=== PATIENT | male | born 1975 | race Caucasian/White ===

== ENCOUNTER 2019-03-28 10:20 | Inpatient (IN) | payer OTHER ==
[2019-03-28] MEDS ORDERED: ACETAMINOPHEN 1000 MG/100 ML VIAL (NON FORMULARY) IVPB ONE (11:49)
[2019-03-28] MEDS ORDERED: SODIUM CHLORIDE 1,000 ML IV STA (11:49)
[2019-03-28] MEDS ORDERED: CLINDAMYCIN 600MG PREMIX IVPB 600 MG/50 ML BAG IVPB ONE (11:49)
[2019-03-28] MEDS ORDERED: DIPHTH,PERTUSS(ACELL),TET 0.5 ML DISP.SYRIN IM ONE ×2 (11:53→12:31)
--- NOTE | 2019-03-28 11:54 | PDOC ---
History of Present Illness - General Chief Complaint: Injury Stated Complaint: FINGER INJURY/SWOLLEN Time Seen by Provider: 03/28/19 11:11 - History of Present Illness Initial Comments: 03/28/19 11:49 43 yo M with no sig pmh who p/w right fifth phalanx injury with warmth, and swelling. Patient reports slamming his right pinky onto wooden door, with injury to nailbed of pinky (03-23-18). Did not go to ED or seek medical attention at time of injury. States that over the last three days his pinky has progressively become more swollen, and started pulsating. Also states that he developed warmth, and redness of pinky, with spreading of warmth and redness up arm. Patient states that he has taken x 5 500 mg Amoxicillin tabs over the past two days, with no improvement in sx. Denies other complaints. Does not recall last tetanus. Patient denies DEMPSEY, vision change, palpitations, cough, wheezing, orthopena, PND , leg swelling/pain, N/V, F,C, CP, SOB, urinary complaints, hematuria, BPR, abdominal pain, diarrhea, constipation, lightheadedness, weakness, sensory changes. PMHx: as noted above ROS: as noted SHx: Denies Etoh, IVDA, tobacco use Allergies: NKDA Past History - Past Medical History Allergies/Adverse Reactions: Allergies Allergy/AdvReac Type Severity Reaction Status Date / Time No Known Allergies Allergy Verified 03/28/19 10:39 - Psycho Social/Smoking Cessation Hx Smoking History: Never smoked Information on smoking cessation initiated: No Hx Alcohol Use: No Drug/Substance Use Hx: No Review of Systems - Review of Systems Comments:: 03/28/19 11:57 GENERAL/CONSTITUTIONAL: No fever or chills. No weakness. HEAD, EYES, EARS, NOSE AND THROAT: No change in vision. No ear pain or discharge. No sore throat. CARDIOVASCULAR: No chest pain or shortness of breath RESPIRATORY: No cough, wheezing, or hemoptysis. GASTROINTESTINAL: No nausea, vomiting, diarrhea or constipation. GENITOURINARY: No dysuria, frequency, or change in urination. MUSCULOSKELETAL: No joint or muscle swelling or pain. No neck or back pain. SKIN: + Right 5th phalanx swelling, and redness. No rash NEUROLOGIC: No headache, vertigo, loss of consciousness, or change in strength/ sensation. ENDOCRINE: No increased thirst. No abnormal weight change HEMATOLOGIC/LYMPHATIC: No anemia, easy bleeding, or history of blood clots. ALLERGIC/IMMUNOLOGIC: No hives or skin allergy. *Physical Exam - Vital Signs Last Vital Signs Temp Pulse Resp BP Pulse Ox 97.8 F 95 H 16 135/79 98 03/28/19 10:39 03/28/19 10:39 03/28/19 10:39 03/28/19 10:39 03/28/19 10:39 - Physical Exam 03/28/19 11:57 GENERAL: Awake, alert, and fully oriented, in no acute distress HEAD: No signs of trauma, normocephalic, atraumatic EYES: PERRLA, EOMI, sclera anicteric, conjunctiva clear ENT: Hearing grossly normal, nares patent, oropharynx clear without exudates. Moist mucosa NECK: Normal ROM, supple, no lymphadenopathy, JVD, or masses LUNGS: No distress, speaks full sentences, clear to auscultation bilaterally HEART: Regular rate and rhythm, normal S1 and S2, no murmurs, rubs or gallops, peripheral pulses normal and equal bilaterally. ABDOMEN: Soft, nontender, normoactive bowel sounds. No guarding, no rebound. No masses EXTREMITIES : Normal inspection, Normal range of motion, no edema. No clubbing or cyanosis NEUROLOGICAL: Cranial nerves II through XII grossly intact. Normal speech, normal gait, no focal sensorimotor deficits SKIN: + Circumferential erythema, edema, ttp, and warmth at 5th upper phalanx diffusely. 5/5 strength, and sensation intact. Nailbed intact. Absent foreign body. + erythema, warmth, and ttp, on volar-medial aspect of forearm extending towards elbow. Warm, Dry, normal turgor. 2 + peripheral pulses throughout. ED Treatment Course - LABORATORY CBC & Chemistry Diagram: 03/28/19 11:50 03/28/19 11:50 - RADIOLOGY Radiology Studies Ordered: Category Date Time Status CHEST PA & LAT [RAD] Stat Radiology 03/28/19 11:47 Ordered FOREARM- RIGHT [RAD] Stat Radiology 03/28/19 11:48 Ordered HAND- RIGHT [RAD] Stat Radiology 03/28/19 11:47 Ordered Medical Decision Making - Medical Decision Making 03/28/19 11:54 43 yo M with no sig pmh who p/w right fifth phalanx injury with warmth, and swelling. HR 95, vitals otherwise wnl, AF, A&Ox3. Physical exam notable for + Circumferential erythema, edema, ttp, and warmth at 5th upper phalanx diffusely. 5/5 strength, and sensation intact. Nailbed intact. Absent foreign body. + erythema, warmth, and ttp, on volar-medial aspect of forearm extending towards elbow with streaking. Denies h/o IVDA, immunocompromised status. Denies systemic complaints. Denies N/V, F,C, CP, SOB, urinary complaints, hematuria, BPR, abdominal pain, diarrhea, lightheadedness, weakness, sensory changes. Patient with spreading cellulitis, and streaking of RUE. Possible lymphangitic spread on high risk site of body. Rapid progressing cellultiis, with failed antibiotic tx. Plan to admit IV antibiotics. Ed Course: 03/28/19 12:03 Vancomycin 1500 mg 03/28/19 13:32 Laboratory Tests 03/28/19 03/28/19 11:50 11:50 WBC 7.2 Hgb 15.9 Hct 48.1 Plt Count 338 Sodium 136 Potassium 4.3 BUN 7.2 Creatinine 0.7 Total Bilirubin 0.4 AST 81 H ALT 144 H 03/28/19 14:05 One inch wooden foreign body removed from affected fingernail. Nailbed intact. 03/28/19 14:06 R HAND RAD: swelling of right fifth digit. otherwise unremarkable 03/28/19 14:[address] Nikki Pabon/Dr. Crain. Will admit to medicine. 03/28/19 15:[address] Jaylan Joseph/hand surgery Discharge - Discharge Information Problems reviewed: Yes Clinical Impression/Diagnosis: Cellulitis of finger, right Condition: Stable - Admission Yes - Follow up/Referral - Patient Discharge Instructions - Post Discharge Activity
[2019-03-28] MEDS ORDERED: VANCOMYCIN HCL 1,500 MG in DEXTROSE 5%-WATER - 500 ML IVPB ONE (12:10)
[2019-03-28] MEDS ORDERED: ACETAMINOPHEN INJECTION 100 ML IVPB ONE (12:14)
[2019-03-28] MEDS ORDERED: VANCOMYCIN 1 GRAM (PRE-DOCKED) 2,000 MG/500 ML BAG IVPB ONE (12:15)
[2019-03-28 12:49] LABS: BASO % 0.2 % (0-2.0); EOS % 0.5 % (0-4.5); HEMATOCRIT 48.1 % (35.4-49); HEMOGLOBIN 15.9 GM/dL (11.7-16.9); LYMPH % 29.5 % (8-40); MCH 28.2 pg (25.7-33.7); MEAN CELL VOLUME 85.3 fl (80-96); MEAN PLT VOLUME 8.7 fl (7.5-11.1); MONO % 9.8 % (3.8-10.2); PLATELET COUNT 338 K/MM3 (134-434); RBC 5.64 M/mm3 (4.00-5.60); RDW 12.9 % (11.9-15.9); WHITE BLOOD COUNT 7.2 K/mm3 (4.0-10.0)
[2019-03-28 13:10] LABS: INR 1.07 (0.83-1.09); PROTHROMBIN TIME (PATIENT) 12.6 SEC (9.7-13.0)
[2019-03-28 13:12] LABS: ACTIVATED PTT 34.6 SECONDS (25.2-36.5)
[2019-03-28 13:15] LABS: BILIRUBIN,TOTAL 0.4 mg/dL (0.2-1); BLOOD UREA NITROGEN 7.2 mg/dL (7-18); CALCIUM 9.5 mg/dL (8.5-10.1); CREATININE 0.7 mg/dL (0.55-1.3); POTASSIUM 4.3 mmol/L (3.5-5.1); TOT PROT 8.1 g/dl (6.4-8.2)
--- NOTE | 2019-03-28 13:48 | PDOC ---
Attending Attestation - Resident Resident Name: Zay Curranson - ED Attending Attestation I have performed the following: I have examined & evaluated the patient, The case was reviewed & discussed with the resident, I agree w/resident's findings & plan - HPI HPI: 03/28/19 13:44 Healthy 43-year-old male with no significant past medical history presents with progressive right fifth digit redness and swelling now extending up to his proximal arm. Patient initially sustained injury while cleaning a wooden door, scratched his distal right fifth digit on the door and began having progressive swelling over the next 3 days, no sensory or motor deficit, had chills on day 3 , otherwise no measured fevers. Over the last 48 hours the redness has extended significantly up his arm, presents for evaluation. Does not recall last tetanus. - Physicial Exam PE: 03/28/19 13:48 Afebrile, vital signs stable Well-appearing seated comfortably in stretcher speaking full sentences Exam is normal except for right hand: There is circumferential swelling and erythema of the right fifth digit with small amount of pus extruding from the nailbed, no other fluctuance or abscess, full flexion and extension with full strength at the MCP/PIP/DIP, there is tracking cellulitis on the ulnar aspect of the hand radiating proximally and medially to near the axilla. 2+ distal pulses without circumferential swelling of the arm. Questionable foreign body versus scab on the right fifth digit nailbed, no tenderness to palpation. - Medical Decision Making 03/28/19 13:50 43-year-old healthy male presents with tracking right hand/upper extremity cellulitis from initial right fifth digit laceration, possibly retained foreign body, evidence of pus on the nailbed. Hemodynamically stable here and neurovascularly intact without evidence of joint compromise, not septic. Check labs, cultures update tetanus Will need IV antibiotics and close monitoring for high risk area of infection Finger block with elevation of the nailbed to rule out foreign body and drained pus We will need admission, consider hand consultation 03/28/19 14:04 After R 5th digit block, nail elevated from nailbed and approximately 2.5cm wooden splinter removed from nailbed. +serosanguinous, slightly purulent fluid extracted. Tolerated well, remained nvi. Heart Score/ECG Review #1 ECG reviewed & interpreted by me at: 14:06 General ECG Interpretation: Sinus Rhythm, Normal Rate (74), Normal Intervals ( qtc 401, LVH), No acute ischemic changes
[2019-03-28] MEDS ORDERED: TETANUS AND DIPHTHERIA TOXOID 0.5 ML DISP.SYRIN IM ONE (19:44)
[2019-03-28] MEDS ORDERED: LIDOCAINE HCL 2% (20ML MULTI-DOSE VIAL) ONE (19:56)
--- NOTE | 2019-03-28 20:02 | HP ---
Admitting History and Physical - Primary Care Physician PCP: Dee Dee Perez - Admission Chief Complaint: finger pain and infection History of Present Illness: was cleaning wood cabinet, hit the edge with his hand 5 days ago developed swelling pain and tenderness with scant pus discharge over the weekend 2 days ago noted his arm becoming more red and swollen came to see dr. perez was sent to er 2.5 cm wood splinter was removed from under the nailbed in the er received tdap History Source: Patient Limitations to Obtaining History: No Limitations - Past Medical History Cardiovascular: Yes: Hyperlipdemia (on diet) - Smoking History Smoking history: Never smoked - Alcohol/Substance Use Hx Alcohol Use: No History of Substance Use: reports: None Home Medications - Allergies Allergies/Adverse Reactions: Allergies Allergy/AdvReac Type Severity Reaction Status Date / Time No Known Allergies Allergy Verified 03/28/19 10:39 Family Medical History Family History: Unremarkable Review of Systems - Review of Systems Constitutional: reports: No Symptoms HENT: reports: No Symptoms Neck: reports: No Symptoms Cardiovascular: reports: No Symptoms Respiratory: reports: No Symptoms Gastrointestinal: reports: No Symptoms Genitourinary: reports: No Symptoms Musculoskeletal: reports: No Symptoms Integumentary: reports: No Symptoms Neurological: reports: No Symptoms Physical Examination Vital Signs: Vital Signs Temperature 97.8 F 03/28/19 10:39 Pulse Rate 80 03/28/19 19:01 Respiratory Rate 20 03/28/19 19:01 Blood Pressure 140/82 03/28/19 19:01 O2 Sat by Pulse Oximetry (%) 99 03/28/19 19:01 Constitutional: Yes: Well Nourished, No Distress Eyes: Yes: Conjunctiva Clear, EOM Intact HENT: Yes: Normocephalic Neck: Yes: Trachea Midline Cardiovascular: Yes: Regular Rate and Rhythm Respiratory: Yes: CTA Bilaterally Gastrointestinal: Yes: Normal Bowel Sounds, Soft Musculoskeletal: Yes: WNL Extremities: Yes: WNL Edema: No Peripheral Pulses WNL: Yes Wound/Incision: Yes: Other (right 5th finger red tender swollen with decreased rom erythema, warmth, tenderness tracking up over inner forearm to mid arm) Labs: CBC, BMP 03/28/19 11:50 03/28/19 11:50 Imaging - Results X-ray: Report Reviewed (no foreign body noted in xray) Problem List - Problems (1) Foreign body (FB) in soft tissue Code(s): M79.5 - RESIDUAL FOREIGN BODY IN SOFT TISSUE (2) Cellulitis of finger, right Code(s): L03.011 - CELLULITIS OF RIGHT FINGER Assessment/Plan broad spectrum abx coverage surgical evaluation for i+d if needed pain control
--- NOTE | 2019-03-28 20:22 | PN ---
Progress Note (short form) - Note Progress Note: I and D of right small finger. Culture pending. Continue TID soaks with saline, and strict elevation with sling, bacitracna and xeroform to the wound. ABX per ID.
[2019-03-28] MEDS ORDERED: DEXTROSE 5%-WATER - 50 ML IVPB ONE (21:26)
[2019-03-28] MEDS ORDERED: PIPERACILLIN/TAZOBACTAM 3.375 GM VIAL IVPB ONE (21:26)
[2019-03-28] MEDS: PIPERACILLIN/TAZOB 3.375 GM 3.375 GM in DEXTROSE 5%-WATER - 50 ML IVPB SCH (21:36)
[2019-03-28] MEDS: IBUPROFEN 600 MG TABLET (FP) PO PRN (21:36)
[2019-03-29] MEDS ORDERED: PIPERACILLIN/TAZOBACTAM 3.375 GM VIAL IVPB ONE ×3 (00:49→18:31)
[2019-03-29] MEDS ORDERED: DEXTROSE 5%-WATER - 50 ML IVPB ONE ×3 (00:49→18:31)
[2019-03-29] MEDS ORDERED: VANCOMYCIN HCL 1,500 MG in DEXTROSE 5%-WATER - 500 ML IVPB SCH (01:00)
[2019-03-29] MEDS: PIPERACILLIN/TAZOB 3.375 GM 3.375 GM in DEXTROSE 5%-WATER - 50 ML IVPB SCH ×4 (02:15→18:57)
[2019-03-29 05:29] VITALS: BMI 26.6
[2019-03-29] MEDS: IBUPROFEN 600 MG TABLET (FP) PO PRN (08:24)
[2019-03-29 08:53] LABS: BASO % 0.2 % (0-2.0); EOS % 2.1 % (0-4.5); HEMATOCRIT 44.1 % (35.4-49); HEMOGLOBIN 14.9 GM/dL (11.7-16.9); LYMPH % 36.1 % (8-40); MCH 28.4 pg (25.7-33.7); MCHC 33.8 g/dl (32.0-35.9); MEAN PLT VOLUME 8.3 fl (7.5-11.1); MONO % 16.7 % (3.8-10.2); NEUT % 44.9 % (42.8-82.8); PLATELET COUNT 299 K/MM3 (134-434); RBC 5.24 M/mm3 (4.00-5.60); RDW 12.7 % (11.9-15.9); WHITE BLOOD COUNT 5.9 K/mm3 (4.0-10.0)
[2019-03-29 09:12] LABS: ALBUMIN 3.4 g/dl (3.4-5.0); BILIRUBIN,TOTAL 0.5 mg/dL (0.2-1); BLOOD UREA NITROGEN 6.6 mg/dL (7-18); CALCIUM 8.4 mg/dL (8.5-10.1); CREATININE 0.8 mg/dL (0.55-1.3); POTASSIUM 4.3 mmol/L (3.5-5.1); TOT PROT 7.1 g/dl (6.4-8.2)
--- NOTE | 2019-03-29 10:13 | PN ---
Progress Note (short form) - Note Progress Note: ID CONSULT DICTATED S/P REMOVAL OF WOODEN SPLINTER FROM FINGER IN ed S/P INCISION AND DRAINAGE OF FINGER ABSCESS LAST NIGH Cellulitis-resolving lymphangitis- resolving continue vancomycin and zosyn f/u cultures improved d/w PMD last night Problem List - Problems (1) Foreign body (FB) in soft tissue Code(s): M79.5 - RESIDUAL FOREIGN BODY IN SOFT TISSUE (2) Abscess Code(s): L02.91 - CUTANEOUS ABSCESS, UNSPECIFIED (3) Cellulitis of finger, right Code(s): L03.011 - CELLULITIS OF RIGHT FINGER (4) Lymphangitis Code(s): I89.1 - LYMPHANGITIS
[2019-03-29] MEDS: BACITRACIN 15 GM TUBE TOPICAL OINTMENT TP SCH ×2 (10:21→21:56)
[2019-03-29] MEDS: VANCOMYCIN HCL 1,500 MG in DEXTROSE 5%-WATER - 250 ML IVPB SCH (10:30)
--- NOTE | 2019-03-29 11:22 | EKG ---
Test Reason : Blood Pressure : / mmHG Vent. Rate : 074 BPM Atrial Rate : 074 BPM P-R Int : 180 ms QRS Dur : 086 ms QT Int : 362 ms P-R-T Axes : 036 -10 -01 degrees QTc Int : 401 ms NORMAL SINUS RHYTHM MINIMAL VOLTAGE CRITERIA FOR LVH, MAY BE NORMAL VARIANT BORDERLINE ECG NO PREVIOUS ECGS AVAILABLE Confirmed by Garcia Morgan MD ([id number]) on 03/29/2019 11:22:13 AM Referred By: Confirmed By:Garcia Morgan MD
--- NOTE | 2019-03-29 12:02 | PN ---
Progress Note (short form) - Note Progress Note: CBC, BMP 03/29/19 07:52 03/29/19 07:52 LFT slightly elevated Vital Signs Period Temp Pulse Resp BP Sys/Pollock Pulse Ox Last 24 Hr 97.4 F-98.1 F 60-80 18-20 124-140/72-82 99-99 s1s2 rrr lungs cta right hand dressed forearm cellulitis much better this am 43 yo man foreign body injury, finger abscess and cellulitis s/p I+D 1..20 cont vancop zosyn looking better consults appreciated Problem List - Problems (1) Foreign body (FB) in soft tissue Code(s): M79.5 - RESIDUAL FOREIGN BODY IN SOFT TISSUE (2) Cellulitis of finger, right Code(s): L03.011 - CELLULITIS OF RIGHT FINGER
--- NOTE | 2019-03-29 14:21 | CONS ---
INFECTIOUS DISEASE CONSULTATION DATE OF CONSULTATION: DATE OF DICTATION: 03/29/2019 HISTORY OF PRESENT ILLNESS: This is a 43-year-old man who comes to the emergency room on March 28 with complaints of swelling and pain from his right small finger. He apparently was cleaning cabinets and the right 5th finger had a splinter that apparently he was not aware of. He developed progressive erythema and swelling of the arm. He did not go to the ER. Over the last 3 days, the pinkie had become more swollen. He felt it was spreading to his arm, his forearm, and he had some amoxicillin at home that he took with no improvement. He went to see Dr. Medina who sent him to the ER. In the ER, he had a 1-inch wooden foreign body removed from the fingernail. He got clindamycin and vancomycin in the ER and he was admitted. Yesterday evening, he was seen by Plastic Surgery, and he had an incision and drainage of the right small finger, and cultures were sent. I am asked to see him for antibiotic recommendations. I spoke with Dr. Antonio, last night. Patient reports his hand is better, this morning. PAST MEDICAL HISTORY: Notable for hyperlipidemia and that he has never had any surgery. MEDICATIONS: He does not take any medicines. ALLERGIES: No known drug allergies. SOCIAL HISTORY: There is no history of alcohol or substance use. He is originally from the [place]. He lives at home with his family. No sick contacts. No recent travel. He has been here for 5 years. REVIEW OF SYSTEMS: He states he felt feverish at home, but did not take his temperature. Otherwise, he reports improvement in his arm. FAMILY HISTORY: Unremarkable. PHYSICAL EXAMINATION: General: Pleasant man, awake and alert. Vital Signs: Temperature is 97.4. He has had no fever since admission. Pulse of 60, blood pressure 130/77, respiratory rate is 18. HEENT: He is normocephalic. His eyes are anicteric. Neck: Supple. Lungs: Clear to auscultation. Heart: Regular rate and rhythm. Abdomen: Soft. Nontender. Extremities: His right 5th finger has some erythema. There is no drainage noted. There is a marked area on his right forearm, extending to his right inner upper arm, which is warm, but there is minimal erythema. He showed me a picture from last night and it is markedly improved. LABORATORIES: Notable for a white count of 5.9, hemoglobin 14.9, platelets are 299. BUN and creatinine are 6 and 0.8 with an AST of 60 and an ALT of 130. Cultures are pending. In summary, this is a 43-year-old man, admitted from home, with a foreign body in his finger that was removed. He has evidence of cellulitis and he had his abscess drained of the finger. The cellulitis and lymphangitis appear to be resolving. Would continue with Zosyn and vancomycin, at this time. He received tetanus booster in ER. Would follow up his cultures. Overall, he is clinically improved. ALEJANDRO SULLIVAN M.D. [id number]
[2019-03-29] MEDS ORDERED: PT OWN MED DRAWER 7, Y5N ONE (14:53)
[2019-03-29] MEDS: VANCOMYCIN HCL 1,250 MG in DEXTROSE 5%-WATER - 250 ML IVPB SCH (14:55)
[2019-03-30] MEDS ORDERED: PT OWN MED DRAWER 7, Y5N ONE ×2 (01:10→15:45)
[2019-03-30] MEDS ORDERED: PIPERACILLIN/TAZOBACTAM 3.375 GM VIAL IVPB ONE ×2 (01:10→11:41)
[2019-03-30] MEDS ORDERED: DEXTROSE 5%-WATER - 50 ML IVPB ONE ×2 (01:10→11:41)
[2019-03-30] MEDS: PIPERACILLIN/TAZOB 3.375 GM 3.375 GM in DEXTROSE 5%-WATER - 50 ML IVPB SCH ×2 (02:09→11:51)
[2019-03-30] MEDS: VANCOMYCIN HCL 1,250 MG in DEXTROSE 5%-WATER - 250 ML IVPB SCH ×2 (02:37→16:31)
[2019-03-30] MEDS: IBUPROFEN 600 MG TABLET (FP) PO PRN (02:57)
--- NOTE | 2019-03-30 08:49 | OP ---
DATE OF OPERATION: 03/28/2019 OPERATING CONSULTATION REPORT The patient is seen at the request of referring physician Dr. Franks. HISTORY OF PRESENT ILLNESS: The history is that this is a 43-year-old male who several days ago suffered an injury from wood to the right small finger. He is a right-hand dominant man. He comes into the emergency room with pain, swelling to the right small finger. PAST MEDICAL AND SURGICAL HISTORY: Noncontributory. REVIEW OF SYSTEMS: Negative for bleeding, coagulopathy, recent fevers or infections, any change in mental status or history of shortness of breath. PHYSICAL EXAMINATION: Head/Neck: Atraumatic except for . Abdomen: Soft and nontender. Extremities: Warm and well perfused. Heart: Regular rate and rhythm. Lungs: Clear to auscultation. Patient also had foreign body removed from the affected right small finger previously but continues to have fluctuance, tenderness, and swelling to the dorsum of the right small finger. Patient is counseled on need for partial removal of the fingernail for evacuation of subungual abscess and further exploration for further foreign body, paronychial incision and drainage. Understands and agrees to proceed. DESCRIPTION OF PROCEDURE: Finger is given a 2-mL, 2% plain lidocaine digital block after which after prepping and draping the paronychial fold is opened with an 11-blade scalpel plus is able to be expressed as well as a residual fragment of wood is able to be removed. After thorough exploration, there is no further foreign body. The wound is copiously irrigated with normal saline. The subungual tissue is then released. Additional pus is released from the subungual space. No further foreign body is identified here. The nail plate is fully removed. However, the more proximal pieces reset into the eponychial fold in order to hold the fold open. Patient's finger is dressed with bacitracin and Xeroform, he is instructed on elevation, IV antibiotics per infectious disease consult. Patient will have 3 times daily soaks, strict elevation, will follow up with Dr. Joseph. JOHANA JOSEPH M.D. ANTHONY/[id number]
[2019-03-30] MEDS: BACITRACIN 15 GM TUBE TOPICAL OINTMENT TP SCH ×2 (10:07→22:25)
--- NOTE | 2019-03-30 10:48 | PN ---
Progress Note (short form) - Note Progress Note: Vital Signs Period Temp Pulse Resp BP Sys/Pollock Pulse Ox Last 24 Hr 97.7 F-97.9 F 62-78 18-18 110-128/70-81 98 s1s2 rrr lungs cta right hand dressed forearm cellulitis better finger swelling decreased, no discharge 43 yo man foreign body injury, finger abscess and cellulitis s/p I+D 1.28.20 cont vancop zosyn looking better consults appreciated Problem List - Problems (1) Foreign body (FB) in soft tissue Code(s): M79.5 - RESIDUAL FOREIGN BODY IN SOFT TISSUE (2) Cellulitis of finger, right Code(s): L03.011 - CELLULITIS OF RIGHT FINGER
--- NOTE | 2019-03-30 16:25 | PN ---
Progress Note (short form) - Note Progress Note: doing well reports surgeon removed nail from his pinky this am Vital Signs Period Temp Pulse Resp BP Sys/Pollock Pulse Ox Last 24 Hr 97.4 F-98 F 62-78 18-20 110-130/72-84 98-99 cor-rrr lungs clear abd soft,nt ext no edema CBC, BMP 03/29/19 07:52 03/29/19 07:52 Microbiology 03/28/19 12:00 Blood - Peripheral Venous Blood Culture - Preliminary NO GROWTH OBTAINED AFTER 48 HOURS, INCUBATION TO CONTINUE FOR 3 DAYS. 03/28/19 12:00 Blood - Peripheral Venous Blood Culture - Preliminary NO GROWTH OBTAINED AFTER 48 HOURS, INCUBATION TO CONTINUE FOR 3 DAYS. 03/28/19 20:14 Finger - Right Small Finger Gram Stain - Final 03/28/19 20:14 Finger - Right Small Finger Wound Culture - Preliminary Staphylococcus Latex Coag Pos a/p S/P REMOVAL OF WOODEN SPLINTER FROM FINGER IN ed S/P INCISION AND DRAINAGE OF FINGER ABSCESS LAST NIGH Cellulitis-resolving lymphangitis- resolving continue vancomycin add cefazolin check vancomycin trough f/u cultures improved d/w PMD last night Problem List - Problems (1) Foreign body (FB) in soft tissue Code(s): M79.5 - RESIDUAL FOREIGN BODY IN SOFT TISSUE (2) Abscess Code(s): L02.91 - CUTANEOUS ABSCESS, UNSPECIFIED (3) Cellulitis of finger, right Code(s): L03.011 - CELLULITIS OF RIGHT FINGER (4) Lymphangitis Code(s): I89.1 - LYMPHANGITIS
[2019-03-30] MEDS: CEFAZOLIN 2 GM/D5W 2 GM/50 ML ML IVPB SCH (18:28)
[2019-03-31] MEDS: BACITRACIN 15 GM TUBE TOPICAL OINTMENT TP SCH ×2 (00:23→10:12)
[2019-03-31] MEDS: CEFAZOLIN 2 GM/D5W 2 GM/50 ML ML IVPB SCH ×3 (01:28→18:12)
[2019-03-31] MEDS ORDERED: PT OWN MED DRAWER 7, Y5N ONE (02:38)
[2019-03-31] MEDS: VANCOMYCIN HCL 1,250 MG in DEXTROSE 5%-WATER - 250 ML IVPB SCH ×2 (02:42→16:09)
[2019-03-31] MEDS: VANCOMYCIN HCL 1,500 MG in DEXTROSE 5%-WATER - 250 ML IVPB SCH (06:57)
--- NOTE | 2019-03-31 08:43 | PN ---
Progress Note (short form) - Note Progress Note: CBC, BMP 03/29/19 07:52 03/29/19 07:52 Vital Signs Period Temp Pulse Resp BP Sys/Pollock Pulse Ox Last 24 Hr 97.4 F-98.4 F 61-79 18-20 106-130/61-84 99-99 Microbiology 03/28/19 12:00 Blood - Peripheral Venous Blood Culture - Preliminary NO GROWTH OBTAINED AFTER 48 HOURS, INCUBATION TO CONTINUE FOR 3 DAYS. 03/28/19 12:00 Blood - Peripheral Venous Blood Culture - Preliminary NO GROWTH OBTAINED AFTER 48 HOURS, INCUBATION TO CONTINUE FOR 3 DAYS. 03/28/19 20:14 Finger - Right Small Finger Gram Stain - Final 03/28/19 20:14 Finger - Right Small Finger Wound Culture - Preliminary Staphylococcus Latex Coag Pos s1s2 rrr lungs cta right hand dressed forearm cellulitis practically resolved finger swelling decreased, erythema and swelling over two distal digits, no discharge 43 yo man foreign body injury, finger abscess and cellulitis s/p I+D 20 cont vancop cefepime looking better abx as per id consults appreciated Problem List - Problems (1) Foreign body (FB) in soft tissue Code(s): M79.5 - RESIDUAL FOREIGN BODY IN SOFT TISSUE (2) Cellulitis of finger, right Code(s): L03.011 - CELLULITIS OF RIGHT FINGER
[2019-03-31 09:11] LABS: BASO % 0.3 % (0-2.0); EOS % 2.8 % (0-4.5); HEMATOCRIT 44.9 % (35.4-49); HEMOGLOBIN 15.1 GM/dL (11.7-16.9); LYMPH % 36.9 % (8-40); MCH 28.4 pg (25.7-33.7); MCHC 33.6 g/dl (32.0-35.9); MEAN CELL VOLUME 84.4 fl (80-96); MEAN PLT VOLUME 7.8 fl (7.5-11.1); MONO % 11.5 % (3.8-10.2); NEUT % 48.5 % (42.8-82.8); PLATELET COUNT 335 K/MM3 (134-434); RBC 5.32 M/mm3 (4.00-5.60); RDW 12.6 % (11.9-15.9); WHITE BLOOD COUNT 7.2 K/mm3 (4.0-10.0)
[2019-03-31 09:41] LABS: ALBUMIN 3.5 g/dl (3.4-5.0); BILIRUBIN,TOTAL 0.4 mg/dL (0.2-1); BLOOD UREA NITROGEN 8.9 mg/dL (7-18); CALCIUM 8.8 mg/dL (8.5-10.1); CREATININE 0.7 mg/dL (0.55-1.3); POTASSIUM 4.2 mmol/L (3.5-5.1); TOT PROT 7.3 g/dl (6.4-8.2)
--- NOTE | 2019-03-31 15:47 | PN ---
Progress Note (short form) - Note Progress Note: doing well Vital Signs Period Temp Pulse Resp BP Sys/Pollock Pulse Ox Last 24 Hr 97.5 F-98.4 F 61-79 18-20 106-123/61-81 99-99 cor-rrr lungs clear less erythema of the pinky, nail off, still some erythema improved ROM some induration left forearm CBC, BMP 03/31/19 08:40 03/31/19 08:40 Microbiology 03/28/19 12:00 Blood - Peripheral Venous Blood Culture - Preliminary NO GROWTH OBTAINED AFTER 72 HOURS, INCUBATION TO CONTINUE FOR 2 DAYS. 03/28/19 12:00 Blood - Peripheral Venous Blood Culture - Preliminary NO GROWTH OBTAINED AFTER 72 HOURS, INCUBATION TO CONTINUE FOR 2 DAYS. 03/28/19 20:14 Finger - Right Small Finger Gram Stain - Final 03/28/19 20:14 Finger - Right Small Finger Wound Culture - Preliminary Staphylococcus Aureus a/p S/P REMOVAL OF WOODEN SPLINTER FROM FINGER IN ed S/P INCISION AND DRAINAGE OF FINGER ABSCESS LAST NIGH Cellulitis-resolving continue ancef hopefully home on po augmentin in next 24-48 hours Problem List - Problems (1) Foreign body (FB) in soft tissue Code(s): M79.5 - RESIDUAL FOREIGN BODY IN SOFT TISSUE (2) Abscess Code(s): L02.91 - CUTANEOUS ABSCESS, UNSPECIFIED (3) Cellulitis of finger, right Code(s): L03.011 - CELLULITIS OF RIGHT FINGER (4) Lymphangitis Code(s): I89.1 - LYMPHANGITIS
[2019-04-01] MEDS: CEFAZOLIN 2 GM/D5W 2 GM/50 ML ML IVPB SCH ×2 (02:22→10:10)
[2019-04-01 06:24] VITALS: BP 114/59; PULSE 66; TEMP 98.7
--- NOTE | 2019-04-01 09:13 | DS ---
Physical Examination Vital Signs: Vital Signs Temperature 98.7 F 04/01/19 06:00 Pulse Rate 66 04/01/19 06:00 Respiratory Rate 18 04/01/19 06:00 Blood Pressure 114/59 L 04/01/19 06:00 O2 Sat by Pulse Oximetry (%) 98 03/31/19 21:00 Constitutional: Yes: Well Nourished, No Distress, Calm HENT: Yes: Normocephalic Neck: Yes: Trachea Midline Cardiovascular: Yes: Regular Rate and Rhythm Respiratory: Yes: CTA Bilaterally Gastrointestinal: Yes: Normal Bowel Sounds Extremities: Yes: Other (right 5th finger nail is off, healing well, skinerythema and induration resolved left forearm minimal induartion after likely infiltrated iv site, no palpable cord) Edema: No Neurological: Yes: WNL Labs: CBC, BMP 03/31/19 08:40 03/31/19 08:40 Discharge Summary Problems reviewed: Yes Reason For Visit: CELLULITIS OF RT FINGER & HAND Current Active Problems Abscess (Acute) Cellulitis of finger, right (Acute) Foreign body (FB) in soft tissue (Acute) Lymphangitis (Acute) Hospital Course: 43 yo man admitted for foreign body injury, finger abscess and cellulitis s/p I+D 1.28.20-almost inch long splinter was removed from nailbed, then entire nail was removed much improved on iv abx, culture grows S.aureus medically stable to go home on oral abx, f/up in office in 2 days Condition: Stable - Instructions Referrals: Dee Dee Medina MD [Primary Care Provider] - Disposition: HOME - Home Medications Comprehensive Discharge Medication List: Ambulatory Orders bacitracin bid augmentin [phone] bid for 10 more days Prescription Drug Monitoring Program (I-STOP) results: I-STOP not reviewed
[2019-04-01] MEDS: BACITRACIN 15 GM TUBE TOPICAL OINTMENT TP SCH (10:10)
--- NOTE | 2019-04-01 16:56 | PN ---
Progress Note (short form) - Note Progress Note: I came to see patient today, but he was discharged. I had seen him on 03/30 noting signficant resolution of his cellulitis. Cultures noted. I have arranged for follow up with me nest week. Discharge instructions to continue soaks, elevation, bacitracin dressing changes , and PO abx.
== END 2019-04-01 11:45 | disposition home or self-care (01) | DRG 603 ==
LOC: JER 10:20 → JERBED 12:05 → J5S 20:40
PROVIDERS: ADMIT Internal Medicine; ATTEND Internal Medicine
PROC: 0X9J0ZX Drainage of Right Hand, Open Approach, Diagnostic (ICD-10-PCS; principal; 2019-03-28)
PROC: 0HCQXZZ Extirpation of Matter from Finger Nail, External Approach (ICD-10-PCS; 2019-03-28)
DX: L03.011 Cellulitis of right finger (principal); E78.5 Hyperlipidemia, unspecified; M79.5 Residual foreign body in soft tissue; B95.61 Methicillin susceptible Staphylococcus aureus infection as the cause of diseases classified elsewhere
CPT/HCPCS: 36415; 71045-TC-FY; 73090-TC-RT-FY; 73130-TC-RT-FY; 80053; 85025; 85610; 85730; 87040; 87070; 87077; 87186; 87205; 90715; 93005; 93010; 99283-25; G0480; J0131; J7030